=== PATIENT | female | born 1940 | race Caucasian/White ===

== ENCOUNTER 2019-05-29 11:50 | Day surgery (SDC) | payer MEDICARE ==
[~2019-05-29 11:50] MED LIST: Buffered Lidocaine 1% SYRIN* 1 ML/SYRINGE INTRADERM ONE; DiMENhydriNATE IV* 50 MG/ML VIAL IV PUSH ONE; Famotidine IV* 10 MG/ML 2 ML (20 mg) IV ONE; Lactated Ringers 1000 ML Bag* 1,000 ML IV SCH
[2019-05-29] MEDS ORDERED: Famotidine IV* 10 MG/ML 2 ML (20 mg) ONE (11:54)
[2019-05-29] MEDS ORDERED: ceFAZolin 2 GM PREMIX in ORs 2 GM/50 ML BAG ONE (11:54)
[2019-05-29] MEDS ORDERED: DiMENhydriNATE IV* 50 MG/ML VIAL ONE (11:54)
[2019-05-29] MEDS ORDERED: Lidocaine 2% PF* 10 ML AMP ONE (13:54)
[2019-05-29] MEDS ORDERED: Bupivacaine 0.25% SDV* 30 ML ONE (13:55)
[2019-05-29] MEDS ORDERED: fentaNYL* 50 MCG/ML 2 ML VIAL (100 MCG VIAL) ONE (13:57)
[2019-05-29] MEDS ORDERED: Midazolam* 1 MG/ML 5 ML VIAL (5 MG) ONE (13:57)
[2019-05-29] MEDS ORDERED: fentaNYL* 50 MCG/ML 2 ML VIAL (100 MCG VIAL) IV PRN (14:01)
[2019-05-29] MEDS ORDERED: Ondansetron INJ* 2 MG/ML VIAL IV PRN (14:01)
[2019-05-29] MEDS ORDERED: HYDROcodone/ACETAMIN 5-325 MG* 1 TAB PO PRN (14:01)
[2019-05-29] MEDS ORDERED: oxyCODONE/Acetamin 5/325 MG* TAB PO PRN (14:01)
[2019-05-29] MEDS ORDERED: Naloxone* 0.4 MG/ML 1 ML VIAL IV PRN (14:01)
[2019-05-29] MEDS ORDERED: Lidocaine 2% PF * 5 ML VIAL ONE (14:14)
[2019-05-29] MEDS ORDERED: Propofol* 10 MG/ML 20 ML BTL ONE (14:14)
--- NOTE | 2019-05-29 15:21 | OP ---
Operative Report - Blank - Operative Report Date of Operation: 05/29/19 Note: PATIENT: Vianey Pedroza DATE OF : 1940 DATE OF SURGERY: 05/29/2019 SURGEON: Rich Arnold MD PERSONNEL WORKER: ANGEL LUIS Green, whos assistance was necessary for positioning, retraction, help with instrumentation, and closure. ANESTHESIOLOGIST: Dr. 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 ANESTHESIA: MAC IMPLANTS: none TOURNIQUET TIME: Less than 1 hour with an ankle Esmarch tourniquet. SPECIMENS: Bone to pathology. Culture swabs to microbiology. ESTIMATED BLOOD LOSS: minimal COMPLICATIONS: none STATUS: Stable from the operating room to the recovery room and then home. INDICATIONS FOR PROCEDURE: Vianey has a nonhealing right diabetic foot ulcer. 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 Both operative and non -operative treatment alternatives were reviewed. Further, the nature and risks of surgery were reviewed in careful detail. Our discussions regarding the risks of surgery included, but were not limited to, infection, wound problems, nerve injury, neuroma, RSD, persistent symptoms, blood clot, need for further surgery , need for amputation, failure of the surgery, and even the remote chance of catastrophic complication. DESCRIPTION OF PROCEDURE: The patient was seen in the preoperative holding unit and informed written consent was obtained. The appropriate extremity was marked. The patient was then brought to the operating room and carefully positioned on the operating room table. Anesthesia was induced. All bony prominences were padded with great care. A chlorhexidine based pre-scrub was performed followed by a chloraprep prep and drape in standard sterile fashion. A surgical safety pause was then conducted in which we confirmed the appropriate patient, extremity, planned procedure, availability of equipment, indication and administration of prophylactic antibiotics, and DVT prophylaxis in the form of a compression boot on the non-surgical extremity. I began with an Esmarch exsanguination of the limb and placement of an ankle Esmarch tourniquet. I made a longitudinal incision over the lateral midfoot. I dissected plantarly to expose the plantar exostoses. Culture swabs were taken and sent to microbiology. Deep bone biopsies from the cuboid bone were taken and sent to pathology. I then used an oscillating saw to perform a saucerization of the prominent plantar exostoses, mostly of the cuboid bone. This bone was then removed. Sharp edges were contoured with a Rongeur. No further prominences were palpated. The wound was then thoroughly irrigated and closed in a layered fashion utilizing 0 Vicryl, 3-0 Monocryl, and 3-0 nylon. A sterile dressing was then applied, followed by a well-padded splint with the ankle in a neutral position. The wound was then copiously irrigated and meticulously closed in layers utilizing 3-0 Monocryl for the dermal layer and 3-0 nylon for the skin. A sterile dressing was then applied. The patient was then awakened from anesthesia and transferred to the recovery room in stable condition. There were no complications. All needle and sponge counts were correct at the end of the case. ATTESTATION: I attest I was present and scrubbed and performed the critical portions of the procedure myself. POSTOPERATIVE PLAN: We will restart antibiotics. We will follow up on the pathology and cultures. I will see her back in one week for a wound check.
[2019-05-29 15:50] VITALS: BP 128/62
== END 2019-05-29 16:35 | disposition home or self-care (01) ==
LOC: OR 11:50
PROVIDERS: ATTEND Orthopaedic Surgery
DX: M14.671 Charcot's joint, right ankle and foot (principal); E11.621 Type 2 diabetes mellitus with foot ulcer; M25.774 Osteophyte, right foot; L97.419 Non-pressure chronic ulcer of right heel and midfoot with unspecified severity; G62.9 Polyneuropathy, unspecified; Z79.84 Long term (current) use of oral hypoglycemic drugs
CPT/HCPCS: 87070; 87073; 87077; 87205; 88304; 88311; J0690; J1240; J2001; J2250; J2704; J3010; J3490